=== PATIENT | female | born 1935 | race Caucasian/White ===

== ENCOUNTER 2017-02-27 15:06 | Outpatient (CLI) | payer MEDICARE, OTHER ==
--- NOTE | 2017-02-27 22:01 | RAD ---
RIGHT SHOULDER THREE VIEWS: Date: 02-27-17 FINDINGS: No acute fracture was seen. There is probably an old injury to the distal clavicle. The AC joint is n ormal in width. There are no periarticular calcifications. The visible adjacent ribs appeared intact. IMPRESSION: No acute bony findings. POS: HOME
== END 2017-02-27 15:07 | disposition home or self-care (01) ==
LOC: BURRAD 15:06
PROVIDERS: ATTEND Family Medicine
DX: M25.511 Pain in right shoulder (principal)

== ENCOUNTER 2019-04-25 12:52 | Emergency (ER) | payer MEDICARE, OTHER ==
[~2019-04-25 12:52] MED LIST: Iopamidol 370 76% 100 ML VIAL ONE
[2019-04-25 13:42] LABS: Hemoglobin 12.8 g/dL (12.0-16.0); Mean Corpuscular HGB CONC 32.4 g/dL (32.0-36.0); Mean Corpuscular Hemoglobin 29.9 pg (27.0-31.0); Mean Corpuscular Volume 92.3 fL (78.0-98.0); RBC Distribution Width 14.6 % (11.5-14.5); Red Blood Cell (RBC) Count 4.27 mill/uL (4.20-5.40); White Blood Cell (WBC) Count 7.4 thou/uL (4.8-10.8)
[2019-04-25 13:43] LABS: #Basophils 0.1 thou/uL (0.0-0.2); #Eosinphils 0.1 thou/uL (0.0-0.7); #Monocytes 0.4 thou/uL (0.11-0.59); #Neutrophils 4.4 thou/uL (1.40-6.50); %Basophils 1.3 % (0.0-1.0); %Eosinophils 1.2 % (0.0-10.0); %Lymphocytes 31.6 % (21.0-51.0); %Monocytes 5.9 % (0.0-10.0); %Neutrophils 60.1 % (42.0-75.0); MDiff Complete? YES; Manual Diff?? NO; Mean Platelet Volume 6.8 fL (7.4-10.4); Platelet Count 292 thou/uL (130-400)
[2019-04-25 13:45] LABS: ALT (SGPT) 12 U/L (8-55); AST (SGOT) 19 U/L (5-34); Albumin 3.9 g/dL (3.4-4.8); Alkaline Phosphatase 66 U/L (40-110); Anion Gap 15 mmol/L (10-20); BUN (Urea Nitrogen) 16 mg/dL (9.8-20.1); Bilirubin, Total 0.8 mg/dL (0.2-1.2); Calc. Creatinine Clearance 0 mL/min (70-130); Carbon Dioxide 23 mmol/L (23-31); Chloride 107 mmol/L (98-107); Estimated GFR-MDRD 48; Globulin 3.3 g/dL (2.4-3.5); Glucose 127 mg/dL (83-110); Lipase 17 U/L (8-78); Potassium 3.6 mmol/L (3.5-5.1); Protein, Total 7.2 g/dL (6.0-8.3); Sodium 141 mmol/L (136-145)
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
== END 2019-04-25 15:18 | disposition home or self-care (01) ==
LOC: BURERS 12:52
DX: S30.1XXA Contusion of abdominal wall, initial encounter (principal); S20.212A Contusion of left front wall of thorax, initial encounter; S20.211A Contusion of right front wall of thorax, initial encounter; S50.11XA Contusion of right forearm, initial encounter; W22.8XXA Striking against or struck by other objects, initial encounter; W18.30XA Fall on same level, unspecified, initial encounter
CPT/HCPCS: 36415; 71260; 74177; 80053; 83690; 84484; 85025; 93005; Q9967

== ENCOUNTER 2021-04-28 12:48 | Emergency (ER) | payer MEDICARE ==
[2021-04-28] MEDS ORDERED: EPINEPHrine 1 MG/10 ML Abboject SYRINGE ONE (13:03)
[2021-04-28] MEDS ORDERED: Pantoprazole 40 MG VIAL ONE ×2 (13:03→13:38)
[2021-04-28] MEDS ORDERED: Ketamine 50 MG/ML (10ML VIAL) ONE (13:04)
[2021-04-28 14:02] LABS: Prothrombin Time 31.8 sec (12.0-14.7)
[2021-04-28 14:10] LABS: Hemoglobin 8.8 g/dL (12.0-16.0); Mean Corpuscular HGB CONC 31.4 g/dL (32.0-36.0); Mean Corpuscular Hemoglobin 31.1 pg (27.0-31.0); Mean Corpuscular Volume 99.1 fL (78.0-98.0); Mean Platelet Volume 6.5 fL (7.4-10.4); Platelet Count 160 thou/uL (130-400); RBC Distribution Width 16.4 % (11.5-14.5); Red Blood Cell (RBC) Count 2.82 mill/uL (4.20-5.40); White Blood Cell (WBC) Count 21.5 thou/uL (4.8-10.8)
[2021-04-28 14:21] LABS: ALT (SGPT) 2882 U/L (8-55); AST (SGOT) 2956 U/L (5-34); Albumin 2.3 g/dL (3.4-4.8); Alkaline Phosphatase 79 U/L (40-110); Anion Gap 41 mmol/L (10-20); BUN (Urea Nitrogen) 36 mg/dL (9.8-20.1); Bilirubin, Total 0.4 mg/dL (0.2-1.2); Calc. Creatinine Clearance 0 mL/min (70-130); Calcium 11.6 mg/dL (7.8-10.44); Carbon Dioxide 11 mmol/L (23-31); Chloride 108 mmol/L (98-107); Globulin 1.9 g/dL (2.4-3.5); Protein, Total 4.2 g/dL (5.8-8.1)
[2021-04-28 14:22] LABS: Potassium 7.5 mmol/L (3.5-5.1); Sodium 152 mmol/L (136-145)
[2021-04-28 14:24] LABS: Glucose 207 mg/dL (83-110)
[2021-04-28 14:53] LABS: Band 4 % (5-11); Lymphocytes 93 % (21-51); MDiff Complete? YES; Monocytes 1 % (0-10); Neutrophil 1 % (42-75)
== END 2021-04-28 14:00 | disposition short-term general hospital (02) ==
LOC: BURERS 12:48
DX: I46.9 Cardiac arrest, cause unspecified (principal); K92.2 Gastrointestinal hemorrhage, unspecified
CPT/HCPCS: 71045; 80053; 83605; 85025; 85610; 86850; 86900; 86901; 86920; P9016; 31500; 36556; 51702; C9113; J0171